=== PATIENT | male | born 2000 | race African-American/Black ===

== ENCOUNTER 2023-12-14 21:23 | Emergency (ER) | payer SELFPAY ==
[~2023-12-14] VITALS: Ht 177.8 cm; Wt 84.0 kg
[2023-12-14 21:26] VITALS: O2SAT 99
[2023-12-14] MEDS ORDERED: ACETAMINOPHEN 325MG TABLET PO NR (22:45)
[2023-12-14] MEDS ORDERED: ONDANSETRON HCL 4MG/2ML INJ IV STA (23:23)
[2023-12-14] MEDS ORDERED: MORPHINE SULFATE 4 MG/ML CPJ (NOT FOR IM USE) IV STA (23:23)
[2023-12-14] MEDS ORDERED: SODIUM CHLORIDE 0.9% 1,000 ML IV ONE (23:30)
[2023-12-14 23:36] LABS: BASOPHILS % 0.2 % (0.0-2.0); EOSINOPHILS % 0.1 % (0.0-5.0); HEMATOCRIT. 44.2 % (42.0-52.0); LYMPHOCYTES % 9.2 % (20.0-50.0); MEAN CORPUSCULAR HEMOGLOBIN 29.4 pg (28.0-32.0); MEAN CORPUSCULAR VOLUME 86.4 fL (80.0-94.0); MEAN PLATELET VOLUME 10.1 fl (7.4-10.4); MONOCYTES % 5.2 % (2.0-8.0); NEUTROPHILS % 85.3 % (40.0-76.0); PLATELET 221 x1000/uL (130-400); RED BLOOD CELL COUNT 5.12 mill/uL (4.7-6.1); RED CELL DISTRIBUTION WIDTH 14.1 % (11.6-14.6); WHITE BLOOD COUNT 11.1 x1000/uL (4.5-11.0)
[2023-12-14 23:40] LABS: ALANINE AMINOTRANSFERASE 14 IU/L (10-49); ALBUMIN 4.7 g/dL (3.2-4.8); ASPARTATE AMINOTRANSFERASE 30 IU/L (<34); BILIRUBIN TOTAL 0.5 mg/dL (0.1-1.0); CALCIUM 9.7 mg/dL (8.7-10.4); CARBON DIOXIDE 28 mEq/L (21-32); CHLORIDE 106 mEq/L (98-107); CREATININE 0.9 mg/dL (0.6-1.3); GLUCOSE 100 mg/dL (70-105); POTASSIUM 3.4 mEq/L (3.5-5.1); PROTEIN TOTAL 8.5 g/dL (6.0-8.3); SODIUM 140 mEq/L (136-145); UREA NITROGEN BLOOD 10 mg/dL (9-23)
[2023-12-15] MEDS ORDERED: LEVETIRACETAM 500MG PREMIX 100 ML IV ONE (00:30)
[2023-12-15 02:10] VITALS: BP 113/50; PULSE 76; RESP 15; TEMP 98
== END 2023-12-15 02:25 | disposition short-term general hospital (02) ==
LOC: ER 21:23
DX: S06.5XAA Traumatic subdural hemorrhage with loss of consciousness status unknown, initial encounter (principal); F12.90 Cannabis use, unspecified, uncomplicated; F15.90 Other stimulant use, unspecified, uncomplicated; X58.XXXA Exposure to other specified factors, initial encounter; Y93.89 Activity, other specified; Y92.89 Other specified places as the place of occurrence of the external cause; Y99.8 Other external cause status
CPT/HCPCS: 80053; 85025; 36415; 71045; 70450; 70486; 72125; 74177; 96361; 96375; 99291; 96365; J7030; J1953; J2405; J2270; Z7610 ×2

== ENCOUNTER 2024-11-01 19:37 | Emergency (ER) | payer SELFPAY ==
[~2024-11-01] VITALS: Ht 177.8 cm; Wt 77.0 kg
[2024-11-01 19:50] VITALS: BP 137/72; PULSE 91; RESP 18; TEMP 98.2; O2SAT 100
[2024-11-01] MEDS ORDERED: LIDO700A15 TP (22:23)
[2024-11-01] MEDS ORDERED: NAPR-1176 MT (22:23)
[2024-11-01] MEDS: KETOROLAC 15MG/ML VIAL IM ONE (22:52)
[2024-11-01] MEDS: LIDOCAINE 5% PATCH TOP SCH (22:52)
== END 2024-11-01 22:58 | disposition home or self-care (01) ==
LOC: ER 19:37
DX: M54.50 Low back pain, unspecified (principal); F12.10 Cannabis abuse, uncomplicated; Z79.1 Long term (current) use of non-steroidal anti-inflammatories (NSAID)
CPT/HCPCS: 99283; 96372; J1885